=== PATIENT | male | born 1965 | race Caucasian/White ===

== ENCOUNTER 2021-06-20 11:32 | Observation (INO) ==
[2021-06-20] MEDS ORDERED: Isovue-370 500 ML BOTTLE IVP ONE (11:39)
[2021-06-20 12:31] LABS: Basophils # 0.1 K/mcL (0.0-0.2); Basophils % 0.5 %; Eosinophils # 0.1 K/mcL (0.0-0.6); Hematocrit 41.7 % (37.5-50.1); Hemoglobin 14.6 g/dL (12.9-16.9); Immature Granulocytes % 0.3 % (0-4); Lymphocytes # 2.5 K/mcL (0.6-4.6); Lymphocytes % 26.3 %; Mean Corpuscular Hemoglobin 34.9 pg (28.0-33.3); Mean Corpuscular Volume 99.8 fL (83.0-100.0); Mean Platelet Volume 10.7 fL (9.4-12.4); Monocytes # 0.8 K/mcL (0.0-1.3); Monocytes % 8.2 %; Neutrophils # 6.1 K/mcL (1.6-8.9); Platelet Count 231 K/mcL (140-400); Red Blood Count 4.18 M/mcL (4.19-5.50); Red Cell Distribution Width 12.2 % (11.5-14.5); Segmented Neutrophils % 63.7 %; White Blood Count 9.6 K/mcL (4.3-11.1)
[2021-06-20 12:57] LABS: BUN/Creatinine Ratio 14 (6-26); Blood Urea Nitrogen 14 mg/dL (6-20); Calcium 10.3 mg/dL (8.6-10.3); Carbon Dioxide 25 mEq/L (23-29); Chloride 101 mEq/L (98-107); Glucose 101 mg/dL (70-105); Osmolality,Calculated 281 (280-300); Potassium 4.2 mEq/L (3.5-5.1); Sodium 135 mEq/L (136-145); Troponin I < 0.03 ng/mL (< 0.04); eGFR For African Americans > 60 (> 60); eGFR For Non-African Americans > 60 (> 60)
[2021-06-20] MEDS ORDERED: Morphine Sulfate 2 MG/ML SYRINGE IVP PRN (17:13)
[2021-06-20] MEDS ORDERED: Perflutren Lipid Microsphere 1.3 ML in 0.9 % Sodium Chloride 8.7 ML IVP PRN (17:13)
[2021-06-20] MEDS ORDERED: Ondansetron 4 MG/2 ML VIAL IVP PRN (17:13)
[2021-06-20] MEDS ORDERED: Naloxone 0.4 MG/ML INJ IVP PRN (17:13)
[2021-06-20] MEDS ORDERED: Nitroglycerin 0.4 MG TAB.SUBL SL PRN (17:13)
[2021-06-20] MEDS: Acetaminophen 325 MG TABLET PO PRN (19:15)
[2021-06-20] MEDS: levETIRAcetam 250 MG TABLET PO SCH (20:31)
[2021-06-21] MEDS: Acetaminophen 325 MG TABLET PO PRN (01:54)
[2021-06-21 02:02] LABS: Prothrombin Time 11.5 Seconds (9.4-12.1)
[2021-06-21 02:26] LABS: Alanine Aminotransferase 97 Units/L (7-52); Albumin 3.7 g/dL (3.5-5.7); Albumin/Globulin Ratio 1.3 (1.1-2.2); Alkaline Phosphatase 69 Units/L (34-104); Aspartate Amino Transferase 64 Units/L (13-39); BUN/Creatinine Ratio 13 (6-26); Bilirubin,Total 0.3 mg/dL (0.3-1.0); Blood Urea Nitrogen 11 mg/dL (6-20); Calcium 9.2 mg/dL (8.6-10.3); Carbon Dioxide 21 mEq/L (23-29); Chloride 105 mEq/L (98-107); Chol/HDL Ratio 5.8 (0-4.9); Cholesterol 140 mg/dL (< 200); Globulin 2.9 g/dL (2.4-3.5); Glucose 125 mg/dL (70-105); HDL Cholesterol 24 mg/dL (40-59); LDL Cholesterol,Calculated 74 mg/dL (< 100); Magnesium 1.9 mg/dL (1.6-2.6); Osmolality,Calculated 283 (280-300); Potassium 4.4 mEq/L (3.5-5.1); Sodium 136 mEq/L (136-145); Total Protein 6.6 g/dL (6.4-8.9); Triglycerides 210 mg/dL (< 150); eGFR For African Americans > 60 (> 60); eGFR For Non-African Americans > 60 (> 60)
[2021-06-21] MEDS: Aspirin Enteric Coated 81 MG Tablet PO SCH (08:02)
[2021-06-21] MEDS: levETIRAcetam 250 MG TABLET PO SCH ×2 (08:02→20:30)
[2021-06-21 10:05] LABS: Basophils % 0.6 %; Eosinophils # 0.2 K/mcL (0.0-0.6); Eosinophils % 2.8 %; Hemoglobin 14.5 g/dL (12.9-16.9); Immature Granulocytes % 0.3 % (0-4); Lymphocytes # 1.6 K/mcL (0.6-4.6); Lymphocytes % 25.4 %; Mean Corpuscular HGB Conc 33.7 g/dL (31.6-35.5); Mean Corpuscular Hemoglobin 34.3 pg (28.0-33.3); Mean Corpuscular Volume 101.7 fL (83.0-100.0); Mean Platelet Volume 10.5 fL (9.4-12.4); Monocytes # 0.5 K/mcL (0.0-1.3); Platelet Count 185 K/mcL (140-400); Red Blood Count 4.23 M/mcL (4.19-5.50); Red Cell Distribution Width 12.5 % (11.5-14.5); Segmented Neutrophils % 62.9 %; White Blood Count 6.4 K/mcL (4.3-11.1)
[2021-06-21 16:24] LABS: Amphetamine Screen,Urine Positive ng/mL (Cutoff=1000); Barbiturate Screen,Urine Negative ng/mL (Cutoff=200); Benzodiazepines Screen,Urine Negative ng/mL (Cutoff=200); Cannabinoid Screen,Urine Positive ng/mL (Cutoff = 50); Cocaine Screen,Urine Negative ng/mL (Cutoff= 300); Opiate Screen,Urine Negative ng/mL (Cutoff=300); Phencyclidine Screen,Urine Negative ng/mL (Cutoff=25)
[2021-06-22 06:28] LABS: Hematocrit 41.5 % (37.5-50.1); Hemoglobin 13.9 g/dL (12.9-16.9); Mean Corpuscular HGB Conc 33.5 g/dL (31.6-35.5); Mean Corpuscular Hemoglobin 34.5 pg (28.0-33.3); Mean Platelet Volume 10.9 fL (9.4-12.4); Platelet Count 186 K/mcL (140-400); Red Blood Count 4.03 M/mcL (4.19-5.50); Red Cell Distribution Width 12.2 % (11.5-14.5); White Blood Count 6.7 K/mcL (4.3-11.1)
[2021-06-22 06:49] LABS: Alanine Aminotransferase 78 Units/L (7-52); Albumin 3.9 g/dL (3.5-5.7); Albumin/Globulin Ratio 1.5 (1.1-2.2); Alkaline Phosphatase 72 Units/L (34-104); Aspartate Amino Transferase 41 Units/L (13-39); BUN/Creatinine Ratio 10 (6-26); Bilirubin,Total 0.3 mg/dL (0.3-1.0); Blood Urea Nitrogen 10 mg/dL (6-20); Calcium 9.2 mg/dL (8.6-10.3); Carbon Dioxide 29 mEq/L (23-29); Chloride 104 mEq/L (98-107); Globulin 2.6 g/dL (2.4-3.5); Glucose 104 mg/dL (70-105); Osmolality,Calculated 281 (280-300); Potassium 4.2 mEq/L (3.5-5.1); Sodium 136 mEq/L (136-145); Total Protein 6.5 g/dL (6.4-8.9); eGFR For African Americans > 60 (> 60); eGFR For Non-African Americans > 60 (> 60)
[2021-06-22] MEDS: Aspirin Enteric Coated 81 MG Tablet PO SCH (08:14)
[2021-06-22] MEDS: levETIRAcetam 250 MG TABLET PO SCH ×2 (08:15→21:17)
[2021-06-22] MEDS: *HR* OxyCODONE/APAP 5/325 TABLET PO PRN ×2 (17:19→23:23)
[2021-06-22] MEDS: *HR* Heparin 5,000 UNIT/ML VIAL SQ SCH (22:50)
[2021-06-23] MEDS: Acetaminophen 325 MG TABLET PO PRN ×2 (03:08→21:24)
[2021-06-23] MEDS: *HR* Heparin 5,000 UNIT/ML VIAL SQ SCH ×3 (05:26→21:24)
[2021-06-23] MEDS: *HR* OxyCODONE/APAP 5/325 TABLET PO PRN ×4 (05:26→23:41)
[2021-06-23 05:36] LABS: Basophils % 0.6 %; Eosinophils # 0.3 K/mcL (0.0-0.6); Eosinophils % 5.2 %; Hematocrit 42.9 % (37.5-50.1); Immature Granulocytes % 0.2 % (0-4); Lymphocytes # 2.3 K/mcL (0.6-4.6); Lymphocytes % 36.2 %; Mean Corpuscular HGB Conc 32.6 g/dL (31.6-35.5); Mean Corpuscular Hemoglobin 33.8 pg (28.0-33.3); Mean Corpuscular Volume 103.6 fL (83.0-100.0); Mean Platelet Volume 10.7 fL (9.4-12.4); Monocytes # 0.5 K/mcL (0.0-1.3); Monocytes % 8.3 %; Neutrophils # 3.1 K/mcL (1.6-8.9); Platelet Count 186 K/mcL (140-400); Red Blood Count 4.14 M/mcL (4.19-5.50); Red Cell Distribution Width 12.3 % (11.5-14.5); Segmented Neutrophils % 49.5 %; White Blood Count 6.3 K/mcL (4.3-11.1)
[2021-06-23 06:02] LABS: Alanine Aminotransferase 78 Units/L (7-52); Albumin 3.9 g/dL (3.5-5.7); Albumin/Globulin Ratio 1.4 (1.1-2.2); Alkaline Phosphatase 74 Units/L (34-104); Aspartate Amino Transferase 48 Units/L (13-39); BUN/Creatinine Ratio 10 (6-26); Bilirubin,Total 0.4 mg/dL (0.3-1.0); Blood Urea Nitrogen 11 mg/dL (6-20); Calcium 9.5 mg/dL (8.6-10.3); Carbon Dioxide 28 mEq/L (23-29); Chloride 103 mEq/L (98-107); Globulin 2.7 g/dL (2.4-3.5); Glucose 99 mg/dL (70-105); Osmolality,Calculated 283 (280-300); Sodium 137 mEq/L (136-145); Total Protein 6.6 g/dL (6.4-8.9); eGFR For African Americans > 60 (> 60); eGFR For Non-African Americans > 60 (> 60)
[2021-06-23 06:04] LABS: BUN/Creatinine Ratio 11 (6-26); Blood Urea Nitrogen 11 mg/dL (6-20); Calcium 9.3 mg/dL (8.6-10.3); Carbon Dioxide 28 mEq/L (23-29); Chloride 102 mEq/L (98-107); Glucose 99 mg/dL (70-105); Osmolality,Calculated 283 (280-300); Potassium 4.2 mEq/L (3.5-5.1); Sodium 137 mEq/L (136-145); eGFR For African Americans > 60 (> 60); eGFR For Non-African Americans > 60 (> 60)
[2021-06-23] MEDS: Aspirin Enteric Coated 81 MG Tablet PO SCH (08:30)
[2021-06-23] MEDS: levETIRAcetam 250 MG TABLET PO SCH ×2 (08:31→21:24)
[2021-06-23] MEDS ORDERED: *HR* Heparin 10,000 UNIT/10 ML VIAL ONE (10:12)
[2021-06-23] MEDS ORDERED: *HR* Midazolam HCl 2 MG/2 ML VIAL ONE (10:12)
[2021-06-23] MEDS ORDERED: Heparin 1,000 UNITS/500 mL 500 ML ONE (10:12)
[2021-06-23] MEDS ORDERED: 0.9 % Sodium Chloride 2,000 ML ONE (10:12)
[2021-06-23] MEDS ORDERED: ISOVUE-370 200 ML INFUS..BTL ONE (10:13)
[2021-06-23] MEDS ORDERED: Nitroglycerin 1,000 MCG/5 ML VIAL IV ONE (10:13)
[2021-06-24] MEDS: *HR* OxyCODONE/APAP 5/325 TABLET PO PRN ×2 (05:43→11:34)
[2021-06-24] MEDS: *HR* Heparin 5,000 UNIT/ML VIAL SQ SCH (05:44)
[2021-06-24 07:52] VITALS: TEMP 97.6
[2021-06-24] MEDS: levETIRAcetam 250 MG TABLET PO SCH (08:14)
[2021-06-24] MEDS: Aspirin Enteric Coated 81 MG Tablet PO SCH (08:14)
[2021-06-24 10:56] VITALS: BP 135/85; PULSE 70; O2SAT 98
== END 2021-06-24 12:29 | disposition home or self-care (01) ==
LOC: 3BNU 11:32 → EMEROOARM 11:32 → SUATTDRO 15:01 → 3BNU 15:49
PROVIDERS: ADMIT Internal Medicine; ATTEND Family Medicine